=== PATIENT | female | born 1995 | race Hispanic/Latino ===

== ENCOUNTER 2021-01-11 23:06 | Emergency (ER) | payer MEDICAID ==
[2021-01-11] MEDS ORDERED: 0.9%NACL 1000ML 1,000 ML IV ONE (23:17)
[2021-01-11] MEDS ORDERED: ACETAMINOPHEN 500 MG TABLET ONE (23:17)
[2021-01-11] MEDS ORDERED: DEXAMETHASONE SOD PHOSPHATE 10MG/ML 1ML VIAL ONE (23:46)
[2021-01-11] MEDS ORDERED: ASPIRIN 325 MG TABLET ONE (23:46)
[2021-01-11] MEDS ORDERED: AZITHROMYCIN 500MG+NS 250ML 250 ML IV ONE (23:47)
[2021-01-11] MEDS ORDERED: CEFTRIAXONE 1G VIAL ONE (23:47)
[2021-01-11 23:49] LABS: HEMATOCRIT 38.4 % (36-48); LYMPHOCYTES % (AUTO) 21.3 % (21.0-51.0); MEAN CORPUSCULAR HEMOGLOBIN 23.6 pg (27.0-33.0); MEAN CORPUSCULAR HGB CONC 30.7 g/dL (32.0-36.0); MEAN CORPUSCULAR VOLUME 76.8 fL (79-99); MONOCYTES % (AUTO) 6.3 % (3.0-13.0); NEUTROPHILS % (AUTO) 71.8 % (40.0-77.0); PLATELET COUNT (AUTO) 249 K/uL (130-400); RED CELL DISTRIBUTION WIDTH 15.4 % (11.0-15.5); WHITE BLOOD COUNT (AUTO) 4.8 K/uL (4.8-10.8)
[2021-01-12 00:01] LABS: ALBUMIN 3.1 g/dL (3.5-5.0); BILIRUBIN,TOTAL 0.2 mg/dL (0.2-1.0); CREATININE 0.7 mg/dL (0.5-1.5); TOTAL PROTEIN, SERUM 7.2 g/dL (6.0-8.3)
[2021-01-12 00:06] LABS: POTASSIUM 2.9 mmol/L (3.5-5.1)
[2021-01-12] MEDS ORDERED: POTASSIUM BICARB/CIT AC 25 MEQ TABLET.EFF ONE (00:36)
[2021-01-12 00:48] LABS: APPEARANCE,URINE Cloudy (CLEAR); BILIRUBIN,URINE Moderate (NEGATIVE); COLOR,URINE Dark Yellow (YELLOW); GLUCOSE, URINE (UA) Negative (NEGATIVE); KETONES,URINE 40 mg/dL (NEGATIVE); LEUKOCYTE ESTERASE ,URINE Small (NEGATIVE); NITRATE,URINE Negative (NEGATIVE); OCCULT BLOOD,URINE Small (NEGATIVE); PH,URINE 5.5 (5.0-8.0); PROTEIN,URINE POS 2+ mg/dL (NEGATIVE)
[2021-01-12 00:56] LABS: BACTERIA,URINE Few /HPF (None Seen)
== END 2021-01-12 02:47 | disposition home or self-care (01) ==
LOC: EDH 23:06
DX: U07.1 COVID-19 (principal); J12.82 Pneumonia due to coronavirus disease 2019
CPT/HCPCS: 36415; 80053; 81001; 84484; 85025; 87040 ×2; 87088; 96365; 96366 ×2; 96368; 96375; 99284; J0456; J0696; J1100; J7030